=== PATIENT | male | born 1990 | race African-American/Black ===

== ENCOUNTER 2017-11-17 23:21 | Inpatient (IN) | payer OTHER ==
[~2017-11-17] VITALS: Ht 188 cm; Wt 99.0 kg
--- NOTE | 2017-11-18 00:38 | ED GI/GU/ABDOMINAL COMPLAINT ---
History of Present Illness General Chief Complaint: Abdominal Pain/Flank Pain Stated Complaint: "I HAVE ACUTE PANCREATITIS" PER PT Source: patient, family Exam Limitations: no limitations Vital Signs & Intake/Output Vital Signs & Intake/Output Vital Signs Date Time Temp Pulse Resp B/P B/P Pulse O2 O2 Flow FiO2 Mean Ox Delivery Rate 11/18 0105 Room Air 11/18 0030 98.8 61 18 153/100 95 Room Air Allergies Coded Allergies: hydromorphone (From DILAUDID) (Intermediate, HIVES 11/18/17) Triage Note: TRIAGE: PATIENT TO ER FROM HOME REPORTING "91/10 PAIN TO UPPER MID ABDOMEN SINCE NOON TODAY." DENIES N/V/D/ URINARY DIFFICULTIES. Triage Nurses Notes Reviewed? yes Onset: Gradual Duration: day(s): Timing: recent history Quality/Severity: burning, cramping, sharpness Location: epigastric Radiation: no radiation Activities at Onset: none Prior Abdominal Problems: similar symptoms Modifying Factors: Worsens With: palpation. Associated Symptoms: abdominal pain, nausea/vomiting HPI: 27 yo gentleman h/o pancreatitis since the age of 14, presents with mid epigastric discomfort, sharp, cramping, since noon 11/17, associated with nausea, consistent with his prior episodes of pancreatitis. He deneis alcohol ingestion or suspicious food intake. No fever, chills, shortness of breath, chest pain. He is otherwise well. Past History Travel History Traveled to [place] past 21 day No Medical History Any Pertinent Medical History? 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 No Review of Systems Review of Systems Constitutional: Reports: no symptoms. EENTM: Reports: no symptoms. Respiratory: Reports: no symptoms. Cardiovascular: Reports: no symptoms. GI: Reports: no symptoms. Genitourinary: Reports: no symptoms. Musculoskeletal: Reports: no symptoms. Skin: Reports: no symptoms. Neurological/Psychological: Reports: no symptoms. Hematologic/Endocrine: Reports: no symptoms. Immunologic/Allergic: Reports: no symptoms. All Other Systems: Reviewed and Negative Physical Exam Physical Exam General Appearance: well developed/nourished, mild distress, moderate distress Head: atraumatic, normal appearance Eyes: Bilateral: normal appearance. Ears, Nose, Throat, Mouth: hearing grossly normal, moist mucous membrane Neck: normal inspection, supple, full range of motion Respiratory: normal breath sounds, chest non-tender, no respiratory distress, quiet respiration Cardiovascular: regular rate/rhythm Gastrointestinal: normal bowel sounds, soft, mid epigastric tenderness to palpation, no rebound. no guarding. no RUQ tenderness. Back: normal inspection, normal range of motion Extremities: normal range of motion Neurologic/Psych: no motor/sensory deficits, awake, alert, oriented x 3 Skin: intact, normal color, warm/dry Core Measures ACS in differential dx? No Sepsis Present: No Sepsis Focused Exam Completed? No Progress Differential Diagnosis: pancreatitis vs other. Plan of Care: Orders Procedure Date/time Status Nothing by Mouth 11/18 B Active Pathway - chart 11/18 025 Active House Staff 11/18 0251 Active Patient Data 11/18 0251 Active Code Status 11/18 0251 Active Patient Data 11/18 0237 Active Saline Lock 11/18 0232 Active Misc Message 11/18 0232 Active ED Holding Orders 11/18 0232 Active Admit to inpatient 11/18 0232 Active Vital Signs 11/18 0232 Active Code Status 11/18 0232 Complete TRIGLYCERIDES 11/18 0119 Complete ETHANOL 11/18 0119 Complete AMYLASE 11/18 0119 Complete EKG 11/18 0038 Active Intake & Output 11/18 0025 Active LIPASE 11/18 0019 Complete LACTIC ACID 11/18 0019 Complete COMPREHENSIVE METABOLIC PANEL 11/18 0019 Complete CBC WITHOUT DIFFERENTIAL 11/18 0019 Complete US-LIMITED ABDOMEN 11/18 UNK Active VTE Mechanical Prophylaxis 11/18 UNK Active Vital Signs 11/18 UNK Active Activity/Ambulation 11/18 UNK Active Current Medications Sig/Berto Start time Last Medication Dose Stop Time Status Admin Heparin Sodium 5,000 UNIT Q8 11/18 0600 AC (Porcine) Morphine Sulfate 4 MG Q2-3 HRS NEEDED.. 11/18 0345 AC (MORPHINE SULFATE) Morphine Sulfate 8 MG ONCE ONE 11/18 0330 UNVr 11/18 (MORPHINE SULFATE) 11/18 0331 0341 Ketorolac 15 MG Q6P PRN 11/18 0300 AC Tromethamine 11/23 0259 (Toradol) Lactated Ringer's 1,000 ML Q6H 11/18 299 AC (Lactated Ringers) Ondansetron HCl 4 MG Q6P PRN 11/18 299 AC (Zofran) Pantoprazole Sodium 40 MG DAILY 11/18 299 AC (Protonix) Laboratory Tests 11/18/17 0319: Lactic Acid Cancelled 11/18/17 0119: Amylase Cancelled 11/18/17 0119: Anion Gap 7, Estimated GFR > 60, BUN/Creatinine Ratio 10.0, Glucose 110 H, Lactic Acid 1.0, Calcium 8.9, Total Bilirubin 1.1, AST 42, ALT 43, Alkaline Phosphatase 47, Total Protein 7.2, Albumin 4.4, Globulin 2.8, Albumin/Globulin Ratio 1.6, Triglycerides 77, Amylase 2439 H, Lipase > 51255 H, CBC w Diff NO MAN DIFF REQ, RBC 4.91, MCV 86.0, MCH 29.9, MCHC 34.7, RDW 12.5, MPV 7.6, Gran % 59.9, Lymphocytes % 24.0, Monocytes % 8.2, Eosinophils % 7.6 H, Basophils % 0.3 , Absolute Granulocytes 5.6, Absolute Lymphocytes 2.2, Absolute Monocytes 0.8 H , Absolute Eosinophils 0.7, Absolute Basophils 0, Serum Alcohol < 10.0 11/18/17 0036: Triglycerides Cancelled 11/18/17 0033: Serum Alcohol Cancelled Diagnostic Imaging: Viewed by Me: CT Scan. Discussed w/RAD: CT Scan. Radiology Impression: PATIENT: ISHAN DILLON PRESENT AGE: 27 PATIENT ACCOUNT NO: [id number] : 90 LOCATION: [facility] ORDERING PHYSICIAN: Jake Chandler MD SERVICE DATE: 11/18/17 EXAM TYPE: CAT - CT ABD & PELVIS W IV CONTRAST EXAMINATION: CT ABDOMEN AND PELVIS WITH CONTRAST CLINICAL INFORMATION: Pancreatitis COMPARISON: None TECHNIQUE: Multidetector volumetric imaging was performed of the abdomen and pelvis following IV administration of 95 mL of Optiray 320 intravenous contrast. Sagittal and coronal reformatted images were obtained on the technologist's workstation. DLP: 451.21 mGy-cm FINDINGS: LUNG BASES: The visualized lung bases are unremarkable. LIVER, GALLBLADDER, AND BILIARY TREE: The liver is normal in size, shape, and attenuation. No focal hepatic lesion or biliary ductal dilatation is present. The gallbladder is unremarkable with no evidence of radiopaque gallstones, gallbladder wall thickening, or obvious pericholecystic inflammatory changes. PANCREAS: Unremarkable. SPLEEN: Unremarkable. ADRENAL GLANDS: Unremarkable. KIDNEYS AND URETERS: The kidneys are normal in size, shape , and attenuation. There is a subcentimeter hypoattenuating lesion in the mid right kidney, statistically likely a small cyst. No hydronephrosis, hydroureter, or calculi seen. No perinephric stranding. BLADDER: Unremarkable. GASTROINTESTINAL TRACT: No specific evidence of bowel obstruction. No abnormal bowel wall thickening or pericolonic inflammation is identified. The appendix appears nondilated. No free fluid or free air is seen. ABDOMINAL WALL: No significant hernia is appreciated. LYMPH NODES: Normal. VASCULAR: Unremarkable. PELVIC VISCERA: Unremarkable. OSSEOUS STRUCTURES: Unremarkable. IMPRESSION: No acute findings identified in the abdomen/pelvis. 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 <Electronically signed in Other Vendor System> SIGNED BY: Hal Vann MD 11/18/17 0331 Initial ED EKG: sinus, no acute changes Departure Departure Disposition: STILL A PATIENT Condition: Stable Clinical Impression Primary Impression: Pancreatitis Referrals: Patient Has No Primary Care Dr (PCP/Family) Departure Forms: Customer Survey General Discharge Information Admission Note Spoke With: John Pham MD Documentation of Exam: Documentation of any treatments & extenuating circumstances including Concerns Regarding Discharge (functional status, medication knowledge or non-compliance, living conditions, etc.) that warrant an admission rather than observation: pt with pancreatitis, lipase >10,000.... benign ct scan is unusual given the degree of his discomfort and lab abnormalities... would have team review with radiologist in AM.
[2017-11-18 01:28] LABS: ABSOLUTE BASOPHIL COUNT 0 /CUMM (0.0-0.2); ABSOLUTE EOSINOPHIL COUNT 0.7 /CUMM (0.0-0.7); ABSOLUTE GRANULOCYTE CT 5.6 /CUMM (1.4-6.5); ABSOLUTE LYMPH COUNT 2.2 /CUMM (1.2-3.4); ABSOLUTE MONOCYTE COUNT 0.8 /CUMM (0.10-0.60); BASOPHIL % 0.3 % (0.0-2.0); EOSINOPHIL % 7.6 % (0-5); GRANULOCYTE % 59.9 % (42.2-75.2); HEMATOCRIT 42.2 % (42-52); MEAN CORPUSCULAR HGB 29.9 PG (27.0-31.0); MEAN CORPUSCULAR HGB CONC 34.7 G/DL (33.0-37.0); MEAN PLATELET VOLUME 7.6 FL (7.4-10.4); PLATELET COUNT 231 /CUMM (130-400); RBC DISTRIBUTION WIDTH 12.5 % (11.5-14.5); RED BLOOD CELL CT 4.91 /CUMM (4.70-6.10); WHITE BLOOD CELL COUNT 9.3 /CUMM (4.8-10.8)
--- NOTE | 2017-11-18 03:19 | History & Physical ---
Jeffry Mcarthur 11/18/17 0318: General Information and HPI MD Statement: I have seen and personally examined ISHAN DILLON and documented this H&P. The patient is a 27 year old M who presented with a patient stated chief complaint of abdominal pain. Source of Information: patient, family Exam Limitations: no limitations History of Present Illness: This is a 27-year-old male with past medical history significant for acute pancreatitis, abdominal trauma presented to the hospital with chief complaint of worsening abdominal pain since morning. Patient has history of episodes of recurrent acute pancreatitis episodes for 11 years.. According to the family, when he was 16-year-old he had abdomen trauma while he was playing football,then he was diagnosed with acute pancreatitis in [facility]. Since then he has been having recurrent episodes of acute pancreatitis every 2-3 years depending on his exertional activity. Patient reports 10 out of 10 abdomen pain, epigastric region, radiating to back, associated with nausea. Denies any vomiting, fever, chills. Denied any constipation or diarrhea. He denied any history of gallstones. No alcohol abuse. Denies hypertriglyceridemia. No family history of pancreatitis or pancreatic cancer. On review of systems he denied any fever, chills, chest pain, palpitations, short of breath, cough, vomiting, change in bladder or bowel habits, headache, neurologic deficits. He denies smoking, alcohol abuse, illicit drug abuse. 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 EENTM: Denies: blurred vision. Cardiovascular: Denies: chest pain, edema, orthopena, palpitations, peripheral edema. Respiratory: Denies: cough, hemoptysis, orthopnea, short of breath, sputum production, stridor. GI: Reports: abdominal pain, nausea. Denies: bloating, constipation, diarrhea, melena, bloody stool, changes in stool. Genitourinary: Denies: discharge, dysuria, frequency, hematuria, hesitation. Musculoskeletal: Denies: back pain, gout, joint pain. Skin: Denies: cysts, jaundice, lesions. Neurological/Psychological: Denies: depressed, dementia. Hematologic/Endocrine: Denies: bleeding. Exam & Diagnostic Data Last 24 Hrs of Vital Signs/I&O Vital Signs Date Time Temp Pulse Resp B/P B/P Pulse O2 O2 Flow FiO2 Mean Ox Delivery Rate 11/18 0105 Room Air 11/18 0030 98.8 61 18 153/100 95 Room Air Intake & Output 11/18 0800 11/18 0000 11/17 1600 Intake Total Output Total Balance Patient 93.894 kg Weight Weight Reported by Patient Measurement Method Physical Exam General Appearance Alert, Oriented X3, Cooperative, No Acute Distress Skin No Rashes, No Breakdown Skin Temp/Moisture Exam: Warm/Dry Sepsis Skin Exam (color): Normal for Ethnicity HEENT Atraumatic, PERRLA, EOMI, Mucous Membr. moist/pink Neck Supple, No JVD Lymphatic Axillary nl, Cervical nl Cardiovascular Regular Rate, Normal S1, Normal S2, No Murmurs Lungs Normal Air Movement Abdomen Normal Bowel Sounds, Soft, tenderness on palpation of epigastric area Extremities No Clubbing, No Cyanosis, No Edema, Normal Pulses, No Tenderness/ Swelling Vascular Normal Pulses, Pulses Symmetrical Last 24 Hrs of Labs/Keagan: Laboratory Tests 11/18/17 0319: Lactic Acid Cancelled 11/18/17 0119: Amylase Cancelled 11/18/17 0119: Anion Gap 7, Estimated GFR > 60, BUN/Creatinine Ratio 10.0, Glucose 110 H, Lactic Acid 1.0, Calcium 8.9, Total Bilirubin 1.1, AST 42, ALT 43, Alkaline Phosphatase 47, Total Protein 7.2, Albumin 4.4, Globulin 2.8, Albumin/Globulin Ratio 1.6, Triglycerides 77, Amylase 2439 H, Lipase > 29504 H, CBC w Diff NO MAN DIFF REQ, RBC 4.91, MCV 86.0, MCH 29.9, MCHC 34.7, RDW 12.5, MPV 7.6, Gran % 59.9, Lymphocytes % 24.0, Monocytes % 8.2, Eosinophils % 7.6 H, Basophils % 0.3 , Absolute Granulocytes 5.6, Absolute Lymphocytes 2.2, Absolute Monocytes 0.8 H , Absolute Eosinophils 0.7, Absolute Basophils 0, Serum Alcohol < 10.0 11/18/17 0036: Triglycerides Cancelled 11/18/17 0033: Serum Alcohol Cancelled Assessment/Plan Assessment: This is a 27-year-old male with past medical history significant for acute pancreatitis, abdominal trauma presented to the hospital with chief complaint of worsening abdominal pain since morning. Vitals afebrile, heart rate 60, respiratory rate 18, blood pressure 153/100, saturating at 95% Labs WBC 9.3, hemoglobin 14, hematocrit 42, platelets 231 Sodium 139, potassium 3.6, BUN 9 and creatinine 0.9, glucose 110 LFTs in normal limits Amylase 2439 Lipase greater than 10,000 EKG sinus arrhythmia, rate 77, no acute ST-T wave changes Patient received sodium chloride 2, Zofran, Pepcid, morphine in the emergency room CAT scan abdomen No acute findings identified in the abdomen/pelvis. 1. Acute pancreatitis Patient presented with worsening abdominal pain, 10 out of 10, associated with the nausea. Patient has history of episodes of recurrent acute pancreatitis episodes for last 11 years.. According to the family, he has been having recurrent episodes of acute pancreatitis every 2-3 years depending on his exertional activity since he was 16-year-old(Diagnosed with acute pancreatitis after abdominal trauma). No alcohol abuse. Denies H/O hypertriglyceridemia. No family history of pancreatitis or pancreatic cancer. Acute pancreatitis most likely secondary to exertional activity prior to that admission. CAT scan abdomen-No acute findings identified in the abdomen/pelvis. * Admit to GEN med * monitor vitals every shift * Maintain oxygen saturations greater than 92 * Bowel rest-n.p.o. * IV Ringer's lactate at 150 mL/h * IV Zofran as needed for nausea * IV pain medications-Toradol and morphine were ordered. Of note he is allergic to Dilaudid * Omeprazole 40 mg daily * Right upper quadrant ultrasound in the a.m. * Lipid panel-triglycerides in normal limits * Please trend amylase and lipase Full code N.p.o. DVT prophylaxis subcu heparin Pain pathway ordered As Ranked By This Provider Problem List: 1. Pancreatitis Core Measures/Misc (12/09) Acute Coronary Syndrome ACS Diagnosis: No Congestive Heart Failure Congestive Heart Failure Diagnosis No Cerebrovascular Accident CVA/TIA Diagnosis: No VTE (View Protocol) VTE Risk Factors No risk factors No Mechanical VTE Prophylaxis d/t Medical Contraindication No VTE Pharm Prophylaxis d/t Medical Contraindication Sepsis (View protocol) Sepsis Present: No If YES complete Sepsis Event Note If YES complete Sepsis Event Note John Pham MD 11/18/17 0607: Core Measures/Misc (12/09) Sepsis (View protocol) If YES complete Sepsis Event Note If YES complete Sepsis Event Note Attending MD Review Statement Attending Statement Attending MD Statement: examined this patient, discuss w/resident/PA/FACTORY MAINTENANCE TECHNICIAN, agreed w/resident/PA/FACTORY MAINTENANCE TECHNICIAN Attending Assessment/Plan: 27 year-old gentleman new to [facility] long standing history of recurrent pancreatitis following sports related injury presents with abdominal pain typical of his infrequent flares. Vitals are stable, no fevers, no lactic acidosis, but significantly uncomfortable in the ER. Unable to obtain relief with significant amounts of opiates in the ED. No nausea and vomiting. No alcohol. LFT's are normal as is the anion gap and triglycerides. In ER given 2 liters of IVF's, Zofran, morphine 12mg IV total in divided doses. Minimal relief thus far. CT scan Admit to inpatient for management of acute pancreatitis. Plan aggressive IVF's at 200mL per hour, IV morphine (allergy with hives to dilaudid he believes), Zofran IV PRN, and trend down the pancreatic enzymes. If we can't get reasonable control of his pain will premedicate with Benadryl and proceed with Dilaudid. Orlando Pham MD ++
--- NOTE | 2017-11-18 03:31 | CT SCAN REPORT ---
EXAMINATION: CT ABDOMEN AND PELVIS WITH CONTRAST CLINICAL INFORMATION: Pancreatitis COMPARISON: None TECHNIQUE: Multidetector volumetric imaging was performed of the abdomen and pelvis following IV administration of 95 mL of Optiray 320 intravenous contrast. Sagittal and coronal reformatted images were obtained on the technologist's workstation. DLP: 451.21 mGy-cm FINDINGS: LUNG BASES: The visualized lung bases are unremarkable. LIVER, GALLBLADDER, AND BILIARY TREE: The liver is normal in size, shape, and attenuation. No focal hepatic lesion or biliary ductal dilatation is present. The gallbladder is unremarkable with no evidence of radiopaque gallstones, gallbladder wall thickening, or obvious pericholecystic inflammatory changes. PANCREAS: Unremarkable. SPLEEN: Unremarkable. ADRENAL GLANDS: Unremarkable. KIDNEYS AND URETERS: The kidneys are normal in size, shape, and attenuation. There is a subcentimeter hypoattenuating lesion in the mid right kidney, statistically likely a small cyst. No hydronephrosis, hydroureter, or calculi seen. No perinephric stranding. BLADDER: Unremarkable. GASTROINTESTINAL TRACT: No specific evidence of bowel obstruction. No abnormal bowel wall thickening or pericolonic inflammation is identified. The appendix appears nondilated. No free fluid or free air is seen. ABDOMINAL WALL: No significant hernia is appreciated. LYMPH NODES: Normal. VASCULAR: Unremarkable. PELVIC VISCERA: Unremarkable. OSSEOUS STRUCTURES: Unremarkable. IMPRESSION: No acute findings identified in the abdomen/pelvis.
[2017-11-18 06:27] VITALS: BP 138/94
--- NOTE | 2017-11-18 07:51 | PN- Housestaff ---
Subjective Follow-up For: Acute Pancreatitis Subjective: Afebrile overnight. Patient is seen and examined in bed this morning in moderate distress. Patient states he has been experiencing severe abdominal pain since last night rated as 10 out of 10 this morning. Patient does not believe the pain medications are helping him so far. Patient denies any radiation of his pain and states most of his pain is located in the epigastric area. Patient otherwise denies any diarrhea, constipation, chest pain, n/v, and dizziness. Review of Systems Constitutional: Reports: see HPI. Objective Last 24 Hrs of Vital Signs/I&O Vital Signs Date Time Temp Pulse Resp B/P B/P Pulse O2 O2 Flow FiO2 Mean Ox Delivery Rate 11/18 0627 97.5 74 20 138/94 99 11/18 0105 Room Air 11/18 0030 98.8 61 18 153/100 95 Room Air Intake & Output 11/18 1600 11/18 0800 11/18 0000 Intake Total 450 Output Total Balance 450 Intake, IV 450 Patient 218 lb Weight Weight Bed scale Measurement Method Physical Exam General Appearance: Alert, Oriented X3, Cooperative, Moderate Distress
--- NOTE | 2017-11-18 10:29 | ULTRASOUND REPORT ---
US ABDOMEN LIMITED CLINICAL INFORMATION: Assess for gallstones. Pancreatitis.. COMPARISON: Abdominal CT performed earlier the same day. TECHNIQUE: Real-time imaging of the right upper quadrant abdominal viscera. FINDINGS: PANCREAS: Majority of the pancreas is obscured by bowel gas and not well assessed. LIVER: Normal. The liver demonstrates normal size, contour and echogenicity. No focal lesion or intrahepatic biliary duct dilatation. GALLBLADDER: Normal. The gallbladder is physiologically distended without evidence of stones, sludge, polyps, wall thickening or pericholecystic fluid. COMMON BILE DUCT: Normal in caliber measuring 0.6 cm in diameter. RIGHT KIDNEY: Normal. No hydronephrosis. No renal calculi or focal parenchymal lesions. The kidney measures 11.7 cm in maximum dimension. FREE FLUID: None. IMPRESSION: Unremarkable right upper quadrant ultrasound. Majority of the pancreas is obscured by bowel gas and not well assessed.
[2017-11-18 14:00] VITALS: BP 133/79
--- NOTE | 2017-11-18 19:19 | Cons- Gastroenterology ---
General Information and HPI Consulting Request Date of Consult: 11/18/17 Requested By: Noe Fitzpatrick MD Reason for Consult: Acute pancreatitis Allergies/Medications Allergies: Coded Allergies: hydromorphone (From DILAUDID) (Intermediate, HIVES 11/18/17) Current Medications: Current Medications Sig/Berto Start time Last Medication Dose Route Stop Time Status Admin Docusate Sodium 100 MG BID PRN 11/18 1200 AC PO Famotidine 0 .STK-MED ONE 11/18 0055 DC IV Famotidine 20 MG ONCE ONE 11/18 0045 DC 11/18 IV 11/18 0046 0104 Gabapentin 300 MG Q8 11/18 1400 AC 11/18 PO 1556 Heparin Sodium 5,000 UNIT Q8 11/18 0600 AC 11/18 (Porcine) SC 1400 Hydromorphone HCl 1 MG Q6P PRN 11/18 0300 DC IV Ketorolac 15 MG Q6P PRN 11/18 0300 DC 11/18 Tromethamine IV 11/23 0259 0806 Lactated Ringer's 1,000 ML Q5H 11/18 0615 AC 11/18 IV 1559 Lactated Ringer's 1,000 ML Q6H 11/18 0300 DC 11/18 IV 0424 Morphine Sulfate 6 MG Q2-3 HRS NEEDED.. 11/18 1200 AC 11/18 IV 1321 Morphine Sulfate 4 MG Q2-3 HRS NEEDED.. 11/18 0345 DC 11/18 IV 0754 Morphine Sulfate 0 .STK-MED ONE 11/18 0336 DC .ROUTE Morphine Sulfate 8 MG ONCE ONE 11/18 0330 DC 11/18 IV 11/18 0331 0341 Morphine Sulfate 0 .STK-MED ONE 11/18 0235 DC .ROUTE Morphine Sulfate 6 MG ONCE ONE 11/18 0230 DC 11/18 IV 11/18 0231 0236 Morphine Sulfate 6 MG ONCE ONE 11/18 0045 DC 11/18 IV 11/18 0046 0104 Ondansetron HCl 4 MG Q6P PRN 11/18 0300 AC IV Ondansetron HCl 0 .STK-MED ONE 11/18 0055 DC .ROUTE Ondansetron HCl 4 MG ONCE ONE 11/18 0045 DC 11/18 IV 11/18 0046 0104 Pantoprazole Sodium 40 MG DAILY 11/18 0300 AC IV Patient Medication 1 ED ONE ONE 11/18 0900 DC 11/18 Teaching ED 11/18 0901 1130 Senna 187 MG AT BEDTIME PRN 11/18 1200 AC PO Sodium Chloride 1,000 ML BOLUS ONE 11/18 0045 DC 11/18 IV 11/18 0144 0153 Sodium Chloride 1,000 ML BOLUS ONE 11/18 0045 DC 11/18 IV 11/18 0144 0104 Past History Travel History Traveled to [place] past 21 day No Medical History Blood Transfusion Hx: No Neurological: NONE EENT: NONE Cardiovascular: NONE Respiratory: NONE Gastrointestinal: pancreatitis Hepatic: NONE Renal: NONE Musculoskeletal: NONE Psychiatric: NONE Endocrine: NONE Blood Disorders: NONE Cancer(s): NONE DAMAGE ADJUSTER/Reproductive: NONE Surgical History Surgical History: 1 Psychosocial History Where Do You Live? Home Services at Home: None Smoking Status: Never Smoked ETOH Use: denies use Illicit Drug Use: denies illicit drug use Exam & Diagnostic Data Vital Signs and I&O Vital Signs Date Time Temp Pulse Resp B/P B/P Pulse O2 O2 Flow FiO2 Mean Ox Delivery Rate 11/18 1400 98.7 63 20 133/79 95 Room Air 11/18 06 97.5 74 20 138/94 99 11/18 0105 Room Air 11/18 0030 98.8 61 18 153/100 95 Room Air Intake & Output 11/18 1600 11/18 0400 11/17 1600 11/17 0400 11/16 1600 11/16 0400 Intake Total 2090 Output Total Balance 2090 Intake, IV 1850 Intake, Oral 240 Patient 218 lb 207 lb Weight Weight Bed scale Reported by Patient Measurement Method Results Pertinent Lab Results: Laboratory Tests 11/18 11/18 11/18 1800 0319 0119 Chemistry Lactic Acid Cancelled Amylase Cancelled Toxicology Urine Opiates Screen (>2000 NG/ML) Pending Methadone Screen (>300 NG/ML) Pending Barbiturate Screen (>200 NG/ML) Pending Ur Phencyclidine Scrn (>25 NG/ML) Pending Amphetamines Screen (>1000 NG/ML) Pending U Benzodiazepines Scrn (>200 NG/ML) Pending Urine Cocaine Screen (>300 NG/ML) Pending Urine Cannabis Screen (>50 NG/ML) Pending 11/18 11/18 11/18 0119 0036 0033 Chemistry Sodium (137 - 145 mmol/L) 139 Potassium (3.5 - 5.1 mmol/L) 3.6 Chloride (98 - 107 mmol/L) 103 Carbon Dioxide (22 - 30 mmol/L) 29 Anion Gap (5 - 16) 7 BUN (9 - 20 mg/dL) 9 Creatinine (0.7 - 1.2 mg/dL) 0.9 Estimated GFR (>60 ml/min) > 60 BUN/Creatinine Ratio (7 - 25 %) 10.0 Glucose (65 - 99 mg/dL) 110 H Lactic Acid (0.7 - 2.1 mmol/L) 1.0 Calcium (8.4 - 10.2 mg/dL) 8.9 Total Bilirubin (0.2 - 1.3 mg/dL) 1.1 AST (17 - 59 U/L) 42 ALT (21 - 72 U/L) 43 Alkaline Phosphatase (< 127 U/L) 47 Total Protein (6.3 - 8.2 g/dL) 7.2 Albumin (3.5 - 5.0 g/dL) 4.4 Globulin (1.9 - 4.2 gm/dL) 2.8 Albumin/Globulin Ratio (1.1 - 2.2 %) 1.6 Triglycerides (<150 mg/dL) 77 Cancelled Amylase (30 - 110 U/L) 2439 H Lipase (23 - 300 U/L) > 53747 H Hematology CBC w Diff NO MAN DIFF REQ WBC (4.8 - 10.8 /CUMM) 9.3 RBC (4.70 - 6.10 /CUMM) 4.91 Hgb (14.0 - 18.0 G/DL) 14.6 Hct (42 - 52 %) 42.2 MCV (80.0 - 94.0 FL) 86.0 MCH (27.0 - 31.0 PG) 29.9 MCHC (33.0 - 37.0 G/DL) 34.7 RDW (11.5 - 14.5 %) 12.5 Plt Count (130 - 400 /CUMM) 231 MPV (7.4 - 10.4 FL) 7.6 Gran % (42.2 - 75.2 %) 59.9 Lymphocytes % (20.5 - 51.1 %) 24.0 Monocytes % (1.7 - 9.3 %) 8.2 Eosinophils % (0 - 5 %) 7.6 H Basophils % (0.0 - 2.0 %) 0.3 Absolute Granulocytes (1.4 - 6.5 /CUMM) 5.6 Absolute Lymphocytes (1.2 - 3.4 /CUMM) 2.2 Absolute Monocytes (0.10 - 0.60 /CUMM) 0.8 H Absolute Eosinophils (0.0 - 0.7 /CUMM) 0.7 Absolute Basophils (0.0 - 0.2 /CUMM) 0 Toxicology Serum Alcohol (<10 MG/DL) < 10.0 Cancelled Imaging/Other Studies: CT scan unremarkable, including no evidence of pancreatitis Ultrasound unremarkable, including no gallstones Assessment/Plan Assessment/Recommendations: Recurrent acute pancreatitis, idiopathic. 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 Manifested as pain and with markedly elevated pancreatic enzymes, but without imaging characteristics of pancreatic inflammation. Recommendations * Standard treatment of pancreatitis, with analgesics, antiemetics, IV fluids. * Clear liquids as tolerated * Consider IV acetaminophen given possible opioid allergy * Eventual evaluation at pancreatitis center, to include evaluation of ductal anatomy (the patient lives in [place], [place], and is visiting relatives now). Consult Acknowledgment - Thank you for your consult request.
[2017-11-18 20:50] VITALS: BP 137/80
--- NOTE | 2017-11-18 22:14 | PN- Att Addend ---
Attending Addendum Attending Brief Note S: The patient continues with severe pain and dose of morphine increased. Able to take liquids by mouth. O: VS: Vital Signs Date Time Temp Pulse Resp B/P B/P Pulse O2 O2 Flow FiO2 Mean Ox Delivery Rate 11/18 2049 98.4 86 16 137/80 97 Room Air 11/18 1400 98.7 63 20 133/79 95 Room Air 11/18 0627 97.5 74 20 138/94 99 11/18 0105 Room Air 11/18 0030 98.8 61 18 153/100 95 Room Air Intake & Output 11/18 1600 11/18 0800 11/18 0000 Intake Total 1640 450 Output Total Balance 1640 450 Intake, IV 1400 450 Intake, Oral 240 Patient 218 lb Weight Weight Bed scale Measurement Method Current Medications Sig/Berto Start time Last Medication Dose Route Stop Time Status Admin Docusate Sodium 100 MG BID PRN 11/18 1200 AC PO Famotidine 0 .STK-MED ONE 11/18 0055 DC IV Famotidine 20 MG ONCE ONE 11/18 0045 DC 11/18 IV 11/18 0046 0104 Gabapentin 300 MG Q8 11/18 1400 AC 11/18 PO 1940 Heparin Sodium 5,000 UNIT Q8 11/18 0600 AC 11/18 (Porcine) SC 1940 Hydromorphone HCl 1 MG Q6P PRN 11/18 0300 DC IV Ketorolac 15 MG Q6P PRN 11/18 0300 DC 11/18 Tromethamine IV 11/23 0259 0806 Lactated Ringer's 1,000 ML Q5H 11/18 0615 AC 11/18 IV 1559 Lactated Ringer's 1,000 ML Q6H 11/18 0300 DC 11/18 IV 0424 Morphine Sulfate 6 MG Q2-3 HRS NEEDED.. 11/18 1200 AC 11/18 IV 1947 Morphine Sulfate 4 MG Q2-3 HRS NEEDED.. 11/18 0345 DC 11/18 IV 0754 Morphine Sulfate 0 .STK-MED ONE 11/18 0336 DC .ROUTE Morphine Sulfate 8 MG ONCE ONE 11/18 0330 DC 11/18 IV 11/18 0331 0341 Morphine Sulfate 0 .STK-MED ONE 11/18 0235 DC .ROUTE Morphine Sulfate 6 MG ONCE ONE 11/18 0230 DC 11/18 IV 11/18 0231 0236 Morphine Sulfate 6 MG ONCE ONE 11/18 44 DC 11/18 IV 11/186 0104 Ondansetron HCl 4 MG Q6P PRN 11/18 0300 AC IV Ondansetron HCl 0 .STK-MED ONE 11/18 0055 DC .ROUTE Ondansetron HCl 4 MG ONCE ONE 11/18 44 DC 11/18 IV 11/186 0104 Pantoprazole Sodium 40 MG DAILY 11/18 0300 AC IV Patient Medication 1 ED ONE ONE 11/18 0900 DC 11/18 Teaching ED 11/18 0901 1130 Senna 187 MG AT BEDTIME PRN 11/18 1200 AC PO Sodium Chloride 1,000 ML BOLUS ONE 11/18 44 DC 11/18 IV 11/18 0144 0153 Sodium Chloride 1,000 ML BOLUS ONE 11/18 44 DC 11/18 IV 11/19 143 0104 Chest: clear Cor: RRR nl S1, S2 w/o murm Abd: BS+, soft, + epigastric tenderness w/o rebound Ext: no edema Labs: Laboratory Tests 11/18/17 1800: Urine Opiates Screen > 4000.00 H, Methadone Screen < 40, Barbiturate Screen < 60, Ur Phencyclidine Scrn < 6.00, Amphetamines Screen < 100, U Benzodiazepines Scrn < 85, Urine Cocaine Screen < 50, Urine Cannabis Screen > 80.00 H 11/18/17 0319: Lactic Acid Cancelled 11/18/17 0119: Amylase Cancelled 11/18/17 0119: Anion Gap 7, Estimated GFR > 60, BUN/Creatinine Ratio 10.0, Glucose 110 H, Lactic Acid 1.0, Calcium 8.9, Total Bilirubin 1.1, AST 42, ALT 43, Alkaline Phosphatase 47, Total Protein 7.2, Albumin 4.4, Globulin 2.8, Albumin/Globulin Ratio 1.6, Triglycerides 77, Amylase 2439 H, Lipase > 10226 H, CBC w Diff NO MAN DIFF REQ, RBC 4.91, MCV 86.0, MCH 29.9, MCHC 34.7, RDW 12.5, MPV 7.6, Gran % 59.9, Lymphocytes % 24.0, Monocytes % 8.2, Eosinophils % 7.6 H, Basophils % 0.3 , Absolute Granulocytes 5.6, Absolute Lymphocytes 2.2, Absolute Monocytes 0.8 H , Absolute Eosinophils 0.7, Absolute Basophils 0, Serum Alcohol < 10.0 11/18/17 0036: Triglycerides Cancelled 11/18/17 0033: Serum Alcohol Cancelled Impression/Plan: #Abdominal Pain/Pancreatitis- with h/o abdominal trauma in past. No imaging evidence of pancreatitis, however lipase > 10,000. GI input appreciated. Plan: Continue IV Ringer's Morphine for analgesia. Add Gabapentin 300 mg tid. Clear Liquid diet. #Gastritis- patient w/o further vomiting. Plan: Continue IV hydration. Zofran/Famotidine.
--- NOTE | 2017-11-19 07:03 | PN- Housestaff ---
Adan Bryant 11/19/17 0703: Subjective Follow-up For: Pancreatitis Subjective: Patient seen and examined at bedside this morning. States his adbominal pain is 3 points better today as controlled by IV morphine and gabapentin. Patient on IV fluids ringers. Denies any vomiting but has occiasional nausea when getting out of bed that is controlled by zofran. Will talk to pharmacy about oral form of morphine for transition in pain control. Review of Systems Constitutional: Denies: see HPI. Objective Last 24 Hrs of Vital Signs/I&O Vital Signs Date Time Temp Pulse Resp B/P B/P Pulse O2 O2 Flow FiO2 Mean Ox Delivery Rate 11/19 726 98.1 96 18 133/80 98 Room Air 11/18 205 98.4 86 16 137/80 97 Room Air 11/18 1400 98.7 63 20 133/79 95 Room Air Intake & Output 11/19 1600 11/19 0800 11/19 0000 Intake Total 1600 400 Output Total Balance 1600 400 Intake, IV 1600 400 Intake, Oral 0 0 Physical Exam General Appearance: Alert, Oriented X3, Cooperative, No Acute Distress Skin: No Rashes, No Breakdown, No Significant Lesion HEENT: PERRLA, EOMI, Mucous Membr. moist/pink Cardiovascular: Regular Rate, Normal S1, Normal S2 Lungs: Clear to Auscultation, Normal Air Movement Abdomen: Pain on palpation superficial/deep; normal bowel sounds; non-distended Neurological: Normal Gait, Normal Speech, Strength at 5/5 X4 Ext, Normal Tone Extremities: No Clubbing, No Cyanosis, No Edema Vascular: Normal Pulses, Pulses Symmetrical Current Medications: Current Medications Sig/Berto Start time Last Medication Dose Route Stop Time Status Admin Docusate Sodium 100 MG BID PRN 11/18 1200 AC PO Gabapentin 300 MG Q8 11/18 1400 AC 11/19 PO 0552 Heparin Sodium 5,000 UNIT Q8 11/18 0600 AC 11/19 (Porcine) SC 0551 Lactated Ringer's 1,000 ML Q5H 11/18 0615 AC 11/19 IV 1035 Morphine Sulfate 6 MG Q2-3 HRS NEEDED.. 11/18 1200 AC 11/19 IV 1103 Morphine Sulfate 4 MG Q2-3 HRS NEEDED.. 11/18 0345 DC 11/18 IV 0754 Ondansetron HCl 4 MG Q6P PRN 11/18 0300 AC IV Pantoprazole Sodium 40 MG DAILY 11/18 0300 AC 11/19 IV 0935 Senna 187 MG AT BEDTIME PRN 11/18 1200 AC PO Tramadol HCl 50 MG ONCE ONE 11/18 2345 DC 11/18 PO 11/18 2346 2343 Tramadol HCl 0 .STK-MED ONE 11/18 2344 DC PO Last 24 Hrs of Lab/Keagan Results Last 24 Hrs of Labs/Mics: Laboratory Tests 11/19/17 0641: Amylase 648 H, Lipase 2383 H 11/18/17 1800: Urine Opiates Screen > 4000.00 H, Methadone Screen < 40, Barbiturate Screen < 60, Ur Phencyclidine Scrn < 6.00, Amphetamines Screen < 100, U Benzodiazepines Scrn < 85, Urine Cocaine Screen < 50, Urine Cannabis Screen > 80.00 H Assessment/Plan Assessment: Patient is a 27 year old male with PMH of multiple bouts of acute pancreatitis secondary to possible abdominal trauma in the past who presented to ED with cheif complain of abdominal pain. Manifested as pain and with markedly elevated pancreatic enzymes, but without imaging characteristics of pancreatic inflammation. CT scan unremarkable, including no evidence of pancreatitis Ultrasound unremarkable, including no gallstones Utox: Cannabis Abdominal Pain/Pancreatitis -History of abdominal pain and pancreatitis in the past; lipase >10,000 on admission; Etiology is likely related to a pancreatic ductal abnormality following trauma many years ago. Lipase decreased to 2383 and amylase at 648 from 2439. * Continue IV Ringers hydration * Morphine MSIR 15mg q6 PRN; discontinued IV morphine for now; consider restarting for breatkthrough pain if needed * Gabapentin 300mg TID * Clear liquid diet * GI Dr. Lua seen patient; Eventual evaluation at pancreatitis center, to include evaluation of ductal anatomy (the patient lives in [place], [place], and is visiting relatives now). Gastritis -1X episode of clear vomit overnight reported * Continue IV hydration * Zofran/Famotidine Problem List: 1. Pancreatitis Pain Ratin Pain Location: Epigastric Pain Goal: Pain 7 or less Pain Plan: as per pain pathway Tomorrow's Labs & Rationales: cbc Noe Osborn MD 11/19/172124: Attending MD Review Statement Attending Statement Attending MD Statement: examined this patient, discuss w/resident/PA/FRAME ALIGNER, agreed w/resident/PA/FRAME ALIGNER, discussed with family, reviewed EMR data (avail), discussed with nursing, discussed with case mgmt, amended to note Attending Assessment/Plan: The patient was seen and discussed with house staff. Appreciate GI follow-up. Pain improved today and lipase decreased to 2383. Will continue to follow symptoms. Suggest more workup as OP when discharged (in [place]).
[2017-11-19 07:27] VITALS: BP 133/80
[2017-11-19 14:31] VITALS: BP 140/88
--- NOTE | 2017-11-19 17:29 | PN- Gastroenterology ---
Assessment/Plan GI Assessment/Recommendations: Recurrent acute pancreatitis, idiopathic. 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 Manifested as pain and with markedly elevated pancreatic enzymes, but without imaging characteristics of pancreatic inflammation. Marked improvement today. Recommendations * Agree with transition to oral analgesics. * Advance to low-fat diet * Eventual evaluation at pancreatitis center, to include evaluation of ductal anatomy (the patient lives in [place], [place], and is visiting relatives now). Subjective Subjective: Pain markedly improved. No nausea or vomiting. No fever. Tolerating full liquid diet. Objective Vital Signs and I&Os Vital Signs Date Time Temp Pulse Resp B/P B/P Pulse O2 O2 Flow FiO2 Mean Ox Delivery Rate 11/19 1431 97.8 86 18 140/88 97 Room Air 11/19 07 98.1 96 18 133/80 98 Room Air 11/18 2049 98.4 86 16 137/80 97 Room Air Intake & Output 11/19 1600 11/19 0400 11/18 1600 11/18 0400 11/17 1600 11/17 0400 Intake Total 6238 164 5903 Output Total Balance 9262 150 1912 Intake, IV 3726 055 0162 Intake, Oral 0 0 240 Patient 218 lb 207 lb Weight Weight Bed scale Reported by Patient Measurement Method Physical Exam: Alert and oriented. Sclera anicteric. No edema. Abdomen soft, nondistended, mild epigastric tenderness. Current Medications: Current Medications Sig/Berto Start time Last Medication Dose Route Stop Time Status Admin Docusate Sodium 100 MG BID PRN 11/18 1200 AC PO Gabapentin 300 MG Q8 11/18 1400 AC 11/19 PO 1456 Heparin Sodium 5,000 UNIT Q8 11/18 0600 AC 11/19 (Porcine) SC 1456 Lactated Ringer's 1,000 ML Q5H 11/18 0615 AC 11/19 IV 1456 Morphine Sulfate 15 MG Q6PRN PRN 11/19 1630 AC PO Morphine Sulfate 15 MG Q6PRN PRN 11/19 1430 DC PO Morphine Sulfate 6 MG Q2-3 HRS NEEDED.. 11/18 1200 DC 11/19 IV 1103 Ondansetron HCl 4 MG Q6P PRN 11/18 0300 AC IV Pantoprazole Sodium 40 MG DAILY 11/18 0300 AC 11/19 IV 0935 Senna 187 MG AT BEDTIME PRN 11/18 1200 AC PO Tramadol HCl 50 MG ONCE ONE 11/18 2345 DC 11/18 PO 11/18 2346 2343 Tramadol HCl 0 .STK-MED ONE 11/18 2344 DC PO Results Pertinent Lab Results: Laboratory Tests 11/19 11/18 11/18 11/18 0641 1800 0319 0119 Chemistry Lactic Acid Cancelled Amylase (30 - 110 U/L) 648 H Cancelled Lipase (23 - 300 U/L) 2383 H Toxicology Urine Opiates Screen (>2000 NG/ML) > 4000.00 H Methadone Screen (>300 NG/ML) < 40 Barbiturate Screen (>200 NG/ML) < 60 Ur Phencyclidine Scrn (>25 NG/ML) < 6.00 Amphetamines Screen (>1000 NG/ML) < 100 U Benzodiazepines Scrn (>200 NG/ML) < 85 Urine Cocaine Screen (>300 NG/ML) < 50 Urine Cannabis Screen (>50 NG/ML) > 80.00 H 11/18 11/18 11/18 0119 0036 0033 Chemistry Sodium (137 - 145 mmol/L) 139 Potassium (3.5 - 5.1 mmol/L) 3.6 Chloride (98 - 107 mmol/L) 103 Carbon Dioxide (22 - 30 mmol/L) 29 Anion Gap (5 - 16) 7 BUN (9 - 20 mg/dL) 9 Creatinine (0.7 - 1.2 mg/dL) 0.9 Estimated GFR (>60 ml/min) > 60 BUN/Creatinine Ratio (7 - 25 %) 10.0 Glucose (65 - 99 mg/dL) 110 H Lactic Acid (0.7 - 2.1 mmol/L) 1.0 Calcium (8.4 - 10.2 mg/dL) 8.9 Total Bilirubin (0.2 - 1.3 mg/dL) 1.1 AST (17 - 59 U/L) 42 ALT (21 - 72 U/L) 43 Alkaline Phosphatase (< 127 U/L) 47 Total Protein (6.3 - 8.2 g/dL) 7.2 Albumin (3.5 - 5.0 g/dL) 4.4 Globulin (1.9 - 4.2 gm/dL) 2.8 Albumin/Globulin Ratio (1.1 - 2.2 %) 1.6 Triglycerides (<150 mg/dL) 77 Cancelled Amylase (30 - 110 U/L) 2439 H Lipase (23 - 300 U/L) > 79819 H Hematology CBC w Diff NO MAN DIFF REQ WBC (4.8 - 10.8 /CUMM) 9.3 RBC (4.70 - 6.10 /CUMM) 4.91 Hgb (14.0 - 18.0 G/DL) 14.6 Hct (42 - 52 %) 42.2 MCV (80.0 - 94.0 FL) 86.0 MCH (27.0 - 31.0 PG) 29.9 MCHC (33.0 - 37.0 G/DL) 34.7 RDW (11.5 - 14.5 %) 12.5 Plt Count (130 - 400 /CUMM) 231 MPV (7.4 - 10.4 FL) 7.6 Gran % (42.2 - 75.2 %) 59.9 Lymphocytes % (20.5 - 51.1 %) 24.0 Monocytes % (1.7 - 9.3 %) 8.2 Eosinophils % (0 - 5 %) 7.6 H Basophils % (0.0 - 2.0 %) 0.3 Absolute Granulocytes (1.4 - 6.5 /CUMM) 5.6 Absolute Lymphocytes (1.2 - 3.4 /CUMM) 2.2 Absolute Monocytes (0.10 - 0.60 /CUMM) 0.8 H Absolute Eosinophils (0.0 - 0.7 /CUMM) 0.7 Absolute Basophils (0.0 - 0.2 /CUMM) 0 Toxicology Serum Alcohol (<10 MG/DL) < 10.0 Cancelled
[2017-11-19 22:38] VITALS: BP 136/85
[2017-11-20 06:57] VITALS: BP 155/96
--- NOTE | 2017-11-20 06:57 | PN- Housestaff ---
See Addendum Subjective Follow-up For: Pancreatitis Subjective: Patient seen and examined at bedside. Claimed he did not tolerate liquids overnight including apple juice, cranberry juice, honduran ice as it caused him severe pain which was releived by oral MSIR. GI has seen patient and recommended low fat diet which will be held for now. IV ringers running and decreased to 125 /hr given improvement in patients lipase from admission. Denies any diarrhea, nausea, vomiting. Review of Systems Constitutional: Denies: see HPI. Objective Last 24 Hrs of Vital Signs/I&O Vital Signs Date Time Temp Pulse Resp B/P B/P Pulse O2 O2 Flow FiO2 Mean Ox Delivery Rate 11/20 1449 98.8 96 20 148/87 98 Room Air 11/20 0657 99.2 95 20 155/96 95 11/19 2238 99.1 106 20 136/85 98 Room Air Intake & Output 11/20 1600 11/20 0800 11/20 0000 Intake Total 1300 1700 940 Output Total Balance 1300 1700 940 Intake, IV 800 1600 800 Intake, Oral 500 100 140 Number 0 Bowel Movements Patient 218 lb Weight Physical Exam General Appearance: Alert, Oriented X3, Cooperative Skin: No Rashes, No Breakdown, No Significant Lesion HEENT: PERRLA, EOMI Cardiovascular: Regular Rate, Normal S1, Normal S2, No Murmurs, Gallops, Rubs Lungs: Clear to Auscultation, Normal Air Movement Abdomen: Epigastric pain; tender to palpation; normal bowel sounds Extremities: No Clubbing, No Cyanosis, No Edema Current Medications: Current Medications Sig/Berto Start time Last Medication Dose Route Stop Time Status Admin Docusate Sodium 100 MG BID PRN 11/18 1200 AC 11/20 PO 0732 Gabapentin 300 MG Q8 11/18 1400 AC 11/20 PO 1337 Heparin Sodium 5,000 UNIT Q8 11/18 0600 11/20 (Porcine) SC 1336 Lactated Ringer's 1,000 ML Q8H 11/20 1445 AC IV Lactated Ringer's 1,000 ML Q5H 11/18 0615 [place] 11/20 IV 1205 Morphine Sulfate 0 .STK-MED ONE 11/19 2232 DC PO Morphine Sulfate 15 MG ONCE ONE 11/19 223 DC 11/19 PO 11/19 223 2249 Morphine Sulfate 15 MG Q6PRN PRN 11/19 1630 AC 11/20 PO 1205 Morphine Sulfate 15 MG Q6PRN PRN 11/19 1430 DC PO Ondansetron HCl 4 MG Q6P PRN 11/18 0300 AC IV Pantoprazole Sodium 40 MG DAILY 11/18 0300 AC 11/20 IV 0731 Patient Medication 1 ED ONE ONE 11/19 1915 DC Teaching ED 11/20 1915 Senna 187 MG AT BEDTIME PRN 11/18 1200 AC PO Assessment/Plan Assessment: Patient is a 27 year old male with PMH of multiple bouts of acute pancreatitis secondary to possible abdominal trauma in the past who presented to ED with cheif complain of abdominal pain. Manifested as pain and with markedly elevated pancreatic enzymes, but without imaging characteristics of pancreatic inflammation. CT scan unremarkable, including no evidence of pancreatitis Ultrasound unremarkable, including no gallstones 11/20: Unable to tolerate apple juice, cranberry juice and honduran ice as patient had significant pain that barely was releived by pain medications. Will avoid the low fat diet recommended by GI for now and continue full liquid diet with IV Ringers at a decreased rate of 125/hr. PROBLEM LIST: 1. Abdominal Pain/Pancreatitis 2. 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 Lipase decreased to 2383 and amylase at 648 from 2439. * Continue IV Ringers hydration - decreased to 125/hr given improvement in lipase * Morphine MSIR 15mg q6 PRN * Gabapentin 300mg TID * Full Liquid Diet given patient did not tolerate low fat diet with pain * GI Dr. Lua seen patient; Eventual evaluation at pancreatitis center, to include evaluation of ductal anatomy (the patient lives in [place], [place], and is visiting relatives now). Gastritis -1X episode of clear vomit overnight reported * Continue IV hydration * Zofran/Famotidine DVT PPx: Heparin SC Full Code Diet: Full Liquid Problem List: 1. Pancreatitis Pain Ratin Pain Location: epigastric Pain Goal: Pain 4 or less Pain Plan: as per pain pathway Tomorrow's Labs & Rationales: cbc bep
[2017-11-20 14:49] VITALS: BP 148/87
[2017-11-20 21:35] VITALS: BP 128/86
[2017-11-21 06:00] VITALS: BP 142/98
--- NOTE | 2017-11-21 07:07 | PN- Housestaff ---
Adan Bryant 11/21/17 0707: Subjective Follow-up For: Pancreatitis Subjective: Patient seen and examined. He is not tolerating full liquid diet too well as he has significant pain after eating cream of wheat and toasts that is being managed by IV morphine and oral MSIR. Patient complained of shortness of breath for which an X ray is ordered given possible effusion from fluids and pancreatitis. Otherwise no vomiting, diarrhea, fevers or chills. Review of Systems Constitutional: Denies: see HPI. Objective Last 24 Hrs of Vital Signs/I&O Vital Signs Date Time Temp Pulse Resp B/P B/P Pulse O2 O2 Flow FiO2 Mean Ox Delivery Rate 11/21 0600 98.5 90 20 142/98 97 11/20 2135 99.2 97 16 128/86 94 Room Air 11/20 1449 98.8 96 20 148/87 98 Room Air Intake & Output 11/21 1600 11/21 0800 11/21 0000 Intake Total 1240 150 Output Total 200 Balance 1240 -50 Intake, IV 1000 Intake, Oral 240 150 Output, Urine 200 Physical Exam General Appearance: Alert, Oriented X3, Mild Distress Skin: No Rashes, No Breakdown HEENT: PERRLA, EOMI, Mucous Membr. moist/pink Cardiovascular: Regular Rate, Normal S1, Normal S2 Lungs: Clear to Auscultation, Normal Air Movement Abdomen: Epigastric abdominal pain Tender to palpation superficial/deep; no rebound Extremities: No Clubbing, No Cyanosis, No Edema Vascular: Normal Pulses, Pulses Symmetrical Current Medications: Current Medications Sig/Berto Start time Last Medication Dose Route Stop Time Status Admin Docusate Sodium 100 MG BID PRN 11/18 1200 AC 11/20 PO 0732 Gabapentin 300 MG Q8 11/18 1400 AC 11/21 PO 0607 Heparin Sodium 5,000 UNIT Q8 11/18 0600 AC 11/21 (Porcine) SC 0607 Lactated Ringer's 1,000 ML Q13H 11/21 1030 AC IV Lactated Ringer's 1,000 ML Q8H 11/20 1445 DC 11/21 IV 0607 Lactated Ringer's 1,000 ML Q5H 11/18 0615 DC 11/20 IV 1205 Morphine Sulfate 6 MG Q2-3 HRS NEEDED.. 11/21 0215 AC 11/21 IV 0808 Morphine Sulfate 0 .STK-MED ONE 11/20 2348 DC PO Morphine Sulfate 15 MG Q6PRN PRN 11/19 1630 AC 11/21 PO 0611 Ondansetron HCl 4 MG Q6P PRN 11/18 0300 AC IV Pantoprazole Sodium 40 MG DAILY 11/18 0300 AC 11/21 IV 0808 Senna 187 MG AT BEDTIME PRN 11/18 1200 AC PO Last 24 Hrs of Lab/Keagan Results Last 24 Hrs of Labs/Mics: Laboratory Tests 11/21/17 0935: Amylase 83, Lipase 230 Assessment/Plan Assessment: Patient is a 27 year old male with PMH of multiple bouts of acute pancreatitis secondary to possible abdominal trauma in the past who presented to ED with cheif complain of abdominal pain. Manifested as pain and with markedly elevated pancreatic enzymes, but without imaging characteristics of pancreatic inflammation. 11/21: Amylase is 83 today and Lipase 230. Patient on LR at 125/hr. His symptoms continue to be significant with slow advancement of his diet. He has pain after having a full liquid diet although recommended by GI to have a low fat diet. CXR ordered for patients shortness of breath and given his pancreatitis and fluids he has been getting there may be a chance of effusion, although patient is saturating well. PROBLEM LIST: 1. Abdominal Pain/Pancreatitis 2. Gastritis Abdominal Pain/Pancreatitis Amylase now at 83 and lipase at 230. * Continue IV Ringers hydration - decreased to 125/hr given improvement in lipase * Morphine MSIR 15mg q6 PRN + IV morphine PRN * Gabapentin 300mg TID * Full Liquid Diet given patient did not tolerate low fat diet with pain * GI Dr. Lua seen patient; Eventual evaluation at pancreatitis center, to include evaluation of ductal anatomy (the patient lives in [place], [place], and is visiting relatives now). * Follow up CXR given shortness of breath Gastritis * Continue IV hydration * Zofran/Famotidine DVT PPx: Heparin SC Full Code Diet: Full Liquid Problem List: 1. Pancreatitis Pain Ratin Pain Location: epigastric Pain Goal: Pain 7 or less Pain Plan: as per pain pathway Tomorrow's Labs & Rationales: cbc bep Noe Fitzpatrick MD 11/21/17 9235: Attending Review Statement Attending Statement Attending MD Statement: examined this patient, discuss w/resident/PA/INSURANCE AGENTS SUPERVISOR, agreed w/resident/PA/INSURANCE AGENTS SUPERVISOR, reviewed EMR data (avail), discussed with nursing, discussed with case mgmt, amended to note Attending Assessment/Plan: The patient was seen and discussed with house staff. Still c/o significant pain upon taking liquids. Lipase now returned to normal. Will attempt to taper off of IV narcotics and attempt to eat small meals.
--- NOTE | 2017-11-21 14:31 | RADIOLOGY REPORT ---
EXAMINATION: XR CHEST CLINICAL INFORMATION: Shortness of breath. Assess for pleural effusions. COMPARISON: CT scan of the abdomen and pelvis 11/18/2017. TECHNIQUE: Frontal and views of the chest were obtained. FINDINGS: The lung clark are well expanded and appear clear bilaterally. The cardiac silhouette is normal. On the lateral view there is equivocal blunting of the posterior left costophrenic angle, not confirmed on the frontal projection. The central pulmonary vasculature is normal. The hilar regions appear normal. There are no acute osseous findings. IMPRESSION: 1. There is equivocal blunting of the left posterior costophrenic angle, which is not confirmed on the frontal projection. It may be consistent with a small posterior pleural effusion. Correlate clinically. 2. There are no other acute cardiopulmonary findings.
[2017-11-21 14:32] VITALS: BP 134/88
--- NOTE | 2017-11-21 18:56 | PN- Gastroenterology ---
Assessment/Plan GI Assessment/Recommendations: Recurrent acute pancreatitis, idiopathic. 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 Manifested as pain and with markedly elevated pancreatic enzymes, but without imaging characteristics of pancreatic inflammation. Pancreatic enzymes have normalized quickly. The patient continues to have pain requiring parenteral narcotics. Recommendations * Revert to clear liquid diet. If tolerates, advance slowly, to full liquid diet with polymeric supplements to make up the patient's nutritional requirements. * Consider reimaging pancreas (CT scan with intravenous contrast, pancreatic protocol) given the degree of pain. * Check CRP * Eventual evaluation at pancreatitis center, to include evaluation of ductal anatomy (the patient lives in [place], [place], and is visiting relatives now). Subjective Subjective: Persistent diffuse abdominal pain, worse in the epigastrium. The patient states that this worsens 5 minutes in to eating. No nausea or vomiting. No fever or sweats. Objective Vital Signs and I&Os Vital Signs Date Time Temp Pulse Resp B/P B/P Pulse O2 O2 Flow FiO2 Mean Ox Delivery Rate 11/21 1432 99.2 92 20 134/88 97 Room Air 11/21 0600 98.5 90 20 142/98 97 11/20 2135 99.2 97 16 128/86 94 Room Air Intake & Output 11/21 1600 11/21 0400 11/20 1600 11/20 0400 11/19 1600 11/19 0400 Intake Total 2390 150 3000 940 3600 400 Output Total 200 Balance 2390 -50 3000 940 3600 400 Intake, IV 1650 2400 800 3200 400 Intake, Oral 740 150 600 140 400 0 Number 0 0 1 Bowel Movements Output, Urine 200 Patient 218 lb Weight Physical Exam: Alert and oriented. Appears comfortable. Sclera anicteric. No adenopathy. No skin lesion. Abdomen soft, nondistended, normal bowel sounds; diffuse mild tenderness, with moderate tenderness in the epigastrium. Current Medications: Current Medications Sig/Berto Start time Last Medication Dose Route Stop Time Status Admin Docusate Sodium 100 MG BID PRN 11/18 1200 AC 11/20 PO 0732 Gabapentin 300 MG Q8 11/18 1400 AC 11/21 PO 1428 Heparin Sodium 5,000 UNIT Q8 11/18 0600 AC 11/21 (Porcine) SC 1428 Lactated Ringer's 1,000 ML Q13H 11/21 1030 AC IV Lactated Ringer's 1,000 ML Q8H 11/20 1445 DC 11/21 IV 0607 Morphine Sulfate 6 MG Q12P PRN 11/21 1415 AC IV Morphine Sulfate 6 MG Q2-3 HRS NEEDED.. 11/21 0215 DC 11/21 IV 0808 Morphine Sulfate 0 .STK-MED ONE 11/20 2348 DC PO Morphine Sulfate 15 MG Q6PRN PRN 11/19 1630 AC 11/21 PO 1701 Ondansetron HCl 4 MG Q6P PRN 11/18 0300 AC IV Pantoprazole Sodium 40 MG DAILY 11/18 0300 AC 11/21 IV 0808 Patient Medication 1 ED ONE ONE 11/21 1515 DC 11/21 Teaching ED 11/21 1516 1701 Polyethylene Glycol 17 GM DAILY 11/21 1410 AC 11/21 PO 1701 Senna 187 MG AT BEDTIME PRN 11/18 1200 AC PO Results Pertinent Lab Results: Laboratory Tests 11/21 11/19 0935 0641 Chemistry Amylase (30 - 110 U/L) 83 648 H Lipase (23 - 300 U/L) 230 2383 H
--- NOTE | 2017-11-21 20:22 | Patient Discharge Instructions ---
Discharge Instructions General Discharge Information You were seen/treated for: Pancreatitis Watch for these problems: Abdominal Pain, Nausea, Vomiting, Fevers, Chills Special Instructions: Please follow up with your PCP within 1-2 weeks of discharge. Please follow up with a Gastroenterolgy Pancreatic specialist in your area within 1-2 weeks of discharge. Please return to ED with worsening abdominal pain, nausea, vomiting, fevers, chills. Acute Coronary Syndrome Inclusion Criteria At DC or during hospital stay patient has or had the following: ACS DIAGNOSIS No Discharge Core Measures Meds if any: Prescribed or Continued at Discharge Meds if any: NOT Prescribed or Continued at Discharge Congestive Heart Failure Inclusion Criteria At DC or during hospital stay patient has or had the following: CHF DIAGNOSIS No Discharge Core Measures Meds if any: Prescribed or Continued at Discharge Meds if any: NOT Prescribed or Continued at Discharge Cerebrovascular accident Inclusion Criteria At DC or during hospital stay patient has or had the following: CVA/TIA Diagnosis No Discharge Core Measures Meds if any: Prescribed or Continued at Discharge Meds if any: NOT Prescribed or Continued at Discharge Venous thromboembolism Inclusion Criteria VTE Diagnosis No VTE Type NONE VTE Confirmed by (Test) NONE Discharge Core Measures - Per Current guidelines, there needs to be overlap - treatment for the first 5 days of Warfarin therapy. - If discharged on Warfarin prior to 5 days of - overlap therapy, the patient will need to be - assessed for post discharge needs including - *Post discharge parental anticoagulation - *Warfarin and/or parental anticoagulation education - *Follow up date to check INR post discharge At least 5 days overlap therapy as Inpatient No Meds if any: Prescribed or Continued at Discharge Note: Overlap Therapy is Warfarin and Anticoagulant Meds if any: NOT Prescribed or Continued at Discharge
[2017-11-21 21:00] VITALS: BP 150/100
[2017-11-22 06:35] VITALS: BP 127/84
--- NOTE | 2017-11-22 07:28 | PN- Housestaff ---
See Addendum Subjective Follow-up For: Pancreatitis Subjective: Patient very sleepy this morning and distressed about his illness. He claims he was able to tolerate the clear liquid diet however has significant pain while digesting. States his pain is a 8/10 which is a significant improvement compared to his previous scales. He feels nauseous but no events of vomiting reported. Patient seen by GI yesterday and will follow up with a repeat CT scan today along with a CRP level. Review of Systems Constitutional: Denies: see HPI. Objective Last 24 Hrs of Vital Signs/I&O Vital Signs Date Time Temp Pulse Resp B/P B/P Pulse O2 O2 Flow FiO2 Mean Ox Delivery Rate 11/22 0635 98.1 83 20 127/84 98 Room Air 11/21 2100 99.2 86 18 150/100 98 11/21 1432 99.2 92 20 134/88 97 Room Air Intake & Output 11/22 1600 11/22 0800 11/22 0000 Intake Total 225 Output Total Balance 225 Intake, IV 225 Physical Exam General Appearance: Alert, Oriented X3, Mild Distress Skin: No Rashes, No Breakdown HEENT: EOMI, Mucous Membr. moist/pink Neck: No JVD, No thryomegaly Cardiovascular: Regular Rate, Normal S1, Normal S2 Lungs: Clear to Auscultation, Normal Air Movement Abdomen: Epigastric tenderness; non-distended; no masses appreciated; normal bowel sounds Extremities: No Clubbing, No Cyanosis, No Edema Vascular: Normal Pulses, Pulses Symmetrical Current Medications: Current Medications Sig/Berto Start time Last Medication Dose Route Stop Time Status Admin Docusate Sodium 100 MG BID PRN 11/18 1200 AC 11/20 PO 0732 Gabapentin 300 MG Q8 11/18 1400 AC 11/22 PO 0629 Heparin Sodium 5,000 UNIT Q8 11/18 0600 AC 11/22 (Porcine) SC 0630 Lactated Ringer's 1,000 ML Q13H 11/21 1030 AC 11/21 IV 1900 Lactated Ringer's 1,000 ML Q8H 11/20 1445 DC 11/21 IV 0607 Morphine Sulfate 0 .STK-MED ONE 11/22 0148 DC .ROUTE Morphine Sulfate 6 MG Q12P PRN 11/22 0145 AC 11/22 IV 0157 Morphine Sulfate 0 .STK-MED ONE 11/22 0143 DC PO Morphine Sulfate 6 MG Q12P PRN 11/21 1415 DC IV Morphine Sulfate 6 MG Q2-3 HRS NEEDED.. 11/21 0215 DC 11/21 IV 0808 Morphine Sulfate 15 MG Q6PRN PRN 11/19 1630 AC 11/21 PO 2313 Ondansetron HCl 4 MG Q6P PRN 11/18 0300 AC IV Pantoprazole Sodium 40 MG DAILY 11/18 0300 AC 11/22 IV 0740 Patient Medication 1 ED ONE ONE 11/21 1515 DC 11/21 Teaching ED 11/21 1516 1701 Polyethylene Glycol 17 GM DAILY 11/21 1410 AC 11/21 PO 1701 Senna 187 MG AT BEDTIME PRN 11/18 1200 AC PO Last 24 Hrs of Lab/Keagan Results Last 24 Hrs of Labs/Mics: Laboratory Tests 11/22/17 0736: C-React Prot High Sens Pending 11/21/17 0935: Amylase 83, Lipase 230 Assessment/Plan Assessment: Patient is a 27 year old male with PMH of multiple bouts of acute pancreatitis secondary to possible abdominal trauma in the past who presented to ED with cheif complain of abdominal pain. Manifested as pain and with markedly elevated pancreatic enzymes, but without imaging characteristics of pancreatic inflammation. 11/22: Patient on LR at 75/hr. Continues to have pain on clear liquid diet reverted in recommendation by GI. Amylase and lipase downtrended. GI recommendetion of repeat CT imaging with IV contrast and a CRP level. CXR yesterday negative for any acute effusions. Discontinue IV pain medication morphine. Continue on oral MSIR for now. Pending discharge tomrorow. PROBLEM LIST: 1. Abdominal Pain/Pancreatitis 2. Gastritis Abdominal Pain/Pancreatitis Amylase now at 83 and lipase at 230. CXR negative for any acute pathology given patients shortness of breath yesterday. Continues to have pain on clear liquid diet. * Continue IV Ringers hydration - decreased to 75/hr * Morphine MSIR 15mg q6 PRN + IV morphine PRN q12; will monitor off IV pain medication * Gabapentin 300mg TID * Advanced to full liquid diet now * Follow up repeat CT Imaging IV contrast + CRP (7.3) as per GI recommendations * GI Dr. Lua seen patient; Eventual evaluation at pancreatitis center, to include evaluation of ductal anatomy (the patient lives in [place], [place], and is visiting relatives now). Gastritis * Continue IV hydration @ 75/hr LR * Zofran * Omeprazole 40mg PO daily DVT PPx: Heparin SC Full Code Diet: Full Liquid Problem List: 1. Pancreatitis Pain Ratin Pain Location: epigastric abdominal pain Pain Goal: Pain 4 or less Pain Plan: as per pain pathway Tomorrow's Labs & Rationales: pending
[2017-11-22 14:24] VITALS: BP 124/78
--- NOTE | 2017-11-22 14:47 | Discharge Summary ---
Visit Information Visit Dates Admission Date: 11/18/17 Discharge Date: 11/23/17 Hospital Course Course Attending Physician: Noe Fitzpatrick MD Primary Care Physician: Patient Has No Primary Care Dr Hospital Course: HOSPITAL COURSE: This is a 27-year-old male with past medical history significant for acute pancreatitis, abdominal trauma presented to the hospital with chief complaint of worsening abdominal pain since 11/18/18 Patient has history of episodes of recurrent acute pancreatitis episodes for 11 years. According to the family, when he was 16-year-old he had abdomen trauma while he was playing football,then he was diagnosed with acute pancreatitis in [facility]. Since then he has been having recurrent episodes of acute pancreatitis every 2-3 years depending on his exertional activity. Patient reported a 10 out of 10 abdomen pain, epigastric region, radiating to back, associated with nausea. Denies any vomiting, fever, chills. Denied any constipation or diarrhea. He denied any history of gallstones. No alcohol abuse. Denies hypertriglyceridemia. No family history of pancreatitis or pancreatic cancer. EMERGENCY DEPARTMENT: Vitals afebrile, heart rate 60, respiratory rate 18, blood pressure 153/100, saturating at 95% Labs WBC 9.3, hemoglobin 14, hematocrit 42, platelets 231 Sodium 139, potassium 3.6, BUN 9 and creatinine 0.9, glucose 110 LFTs in normal limits Amylase 2439 Lipase greater than 10,000 EKG sinus arrhythmia, rate 77, no acute ST-T wave changes Patient received sodium chloride 2, Zofran, Pepcid, morphine in the emergency room CAT scan abdomen No acute findings identified in the abdomen/pelvis. GENERAL MEDICINE ADMISSION: Patient admitted to general medicine floor for treatment, evaluation and monitoring of the following: PROBLEM LIST: 1. ACUTE PANCREATITIS 1. Acute pancreatitis Patient presented with worsening abdominal pain, 10 out of 10, associated with the nausea. Patient has history of episodes of recurrent acute pancreatitis episodes for last 11 years.. According to the family, he has been having recurrent episodes of acute pancreatitis every 2-3 years depending on his exertional activity since he was 16-year-old(Diagnosed with acute pancreatitis after abdominal trauma). No alcohol abuse. Denies H/O hypertriglyceridemia. No family history of pancreatitis or pancreatic cancer. Acute pancreatitis most likely secondary to exertional activity prior to that admission. CAT scan abdomen-No acute findings identified in the abdomen/pelvis. Patients pain was controlled on both oral morphine MSIR 15mg q6 PRN as well as IV morphine and gabapentin 300mg q8 PO. Patient was slowly tritrated down on pain medications accordingly. Patient recieved Lactated Ringers during his stay as well as slow advancement of his diet. Gastroenterology Dr. Lua was consulted. suspected the etiology is related to a pancreatic ductal abnormality following trauma many years ago. Manifested as pain and with markedly elevated pancreatic enzymes, but without imaging characteristics of pancreatic inflammation. Pancreatic enzymes have normalized quickly. Patients CRP was checked to be 7.3 and insignificant. Reimaging of the pancreas CT scan with IV contrast, pancreatic protocol) was done given degree of pain. Patient advanced to low fat diet as he tolerated better. IV pain medications discontinued. Patient discharged on oral MSIR for 3 days and Gabapentin 300mg BID for 1 week as well as omeprazole 40mg. Recommended eventual evaluation at pancreatitis center, to include evaluation of ductal anatomy (the patient lives in [place], [place], and is visiting relatives now). Patient advised to follow up with his PCP in [place] accordingly and to return to ED if worsening symptoms of abdominal pain, nausea, vomiting, fevers, chills, diarrhea. Code Status: Full Code Diet: Diet was advanced as tolerated up til low fat diet DVT PPx: heparin SC Allergies: Coded Allergies: hydromorphone (From DILAUDID) (Intermediate, HIVES 11/18/17) Disposition Summary Disposition Principal Diagnosis: Acute Pancreatitis Additional Diagnosis: Pancreatitis Discharge Disposition: home or self care Discharge Instructions General Discharge Information Code Status: Full Code Patient's Diet: Full Liquid diet with transition to low fat diet Patient's Activity: As tolerated Follow-Up Instructions/Appts: Please follow up with PCP in [place] upon discharge. Please follow up with a Pancreatic [facility] specialist accordingly in your area. Return to ED with worsening abdominal pain, nausea, vomting, fevers, chills, diarrhea. Medications at Discharge Discharge Medications: Start taking the following new medications: Morphine Sulfate (Morphine Sulfate) 15 MG TABLET 15 Milligram ORAL EVERY 8 HOURS NEEDED as needed for ABDOMINAL PAIN Qty = 9 No Refills Instructions: .. Comments: Last Taken:11/23 Time:1240 Gabapentin (Gabapentin) 300 MG CAPSULE 300 Milligram ORAL EVERY 8 HOURS Qty = 21 No Refills Instructions: . Comments: Last Taken:11/23/17 Time:1503 Omeprazole (Omeprazole) 40 MG CAPSULE. 1 Capsule ORAL DAILY Qty = 30 No Refills Instructions: . Comments: Last Taken:11/23/17 Time:0541 Copies To: Chanell BOSS,Sukhwinder Klein Attending MD Review Statement Documenting Attending: Noe Fitzpatrick MD Other Findings: Agree with above summary of care and plan upon discharge. The patient was given disks with copies of imaging studies. Needs follow-up by PCP in [place] and suggest referral to specialty center in [place] for closer evaluation of pancreatic ducts.
--- NOTE | 2017-11-22 18:25 | CT SCAN REPORT ---
EXAMINATION: CT ABDOMEN WITHOUT AND WITH CONTRAST CLINICAL INFORMATION: Pancreatitis. COMPARISON: CT abdomen/pelvis 11/18/2017 TECHNIQUE: Contiguous axial thin section helical images of the abdomen were performed before and after the administration of oral contrast and 98 mL Optiray 320 intravenous contrast. The data set was reformatted in the coronal and sagittal planes and reviewed on an independent workstation. DLP: 448 mGy-cm FINDINGS: LUNG BASES: Partially visualized trace left pleural effusion with partial left basilar collapse/consolidation, new from the prior exam. LIVER, GALLBLADDER, AND BILIARY TREE: The liver is normal in size, shape, and attenuation. No focal hepatic lesion or biliary ductal dilatation is present. The gallbladder is unremarkable with no evidence of radiopaque gallstones, gallbladder wall thickening, or obvious pericholecystic inflammatory changes. PANCREAS: There is evidence of peripancreatic inflammation/edema, which is new when compared to the prior exam. Ill-defined fluid seen tracking dorsal to the pancreatic body/tail, along the left anterior pararenal space and left paracolic gutter. No drainable fluid collections identified. No definite areas of hypoenhancement are seen involving the pancreatic parenchyma. No focal enhancing lesion identified. The traversing splenic vein and splenic artery appear patent without evidence of thrombosis or aneurysm formation. SPLEEN: Unremarkable. ADRENAL GLANDS: Unremarkable. KIDNEYS AND URETERS: The kidneys are normal in size, shape, and attenuation. There is a subcentimeter hypoattenuating lesion in the mid right kidney, statistically likely a small cyst. No hydronephrosis, hydroureter, or calculi seen. No perinephric stranding. BLADDER: Unremarkable. GASTROINTESTINAL TRACT: There is thickening of the stomach wall with mucosal hyperenhancement, possibly reactive in etiology. No evidence of bowel obstruction within the [id number]. Colonic diverticulosis noted. IMPRESSION: Findings most compatible with acute interstitial pancreatitis. No evidence of drainable fluid collection. Nonspecific gastric wall thickening, possibly reflecting reactive gastritis. Trace left pleural effusion, new from the prior exam.
[2017-11-22 21:22] VITALS: BP 130/89
--- NOTE | 2017-11-22 23:33 | PN- Gastroenterology ---
Assessment/Plan GI Assessment/Recommendations: (*Please refer to Dr. Sushil Lua's inpt GI consult of 11/18/17 & subsequent progress notes, labs, & imaging studies. I assumed the weekly inpt GI sevice on 11/22/17. Records reviewed). Otherwise healthy 27-year-old male, with episodes of recurrent acute pancreatitis (5th episode/11 years), after sustaining trauma as a 16-year-old while playing football, when he sustained an injury to the xiphoid/epigastric region. He was initially hospitalized in the [place]. He usually has flares every 2-3 years, but appears to be asymptomatic in between bouts. He had never had any EUS. There is no FHx of pancreatitis. He denied any history of hypertriglyceridemia. He denied ever having had genetic testing for pancreatitis. He had no prior abdominal surgery. His gallbladder is intact. He denied any cigarettes, EtOH, or illicit drugs. He was admitted to [facility] with his typical abdominal pain in the epigastric region, radiating to the mid-back, with nausea but no vomiting. He denied any jaundice. *His TG were normal (77) on admission, with lipase > 10K, nl LFTs, EtOH < 10, Admission U tox > 4K OP/MS, & > 80 cannabis (uncertain if obtained after getting analgesics in ER). *As of 11/22/17, the patient was hemodynamically stable & afebrile, with O2 sat RA 97%. He was ambulating. His abdominal pain was improving, down to "5 out of 10". He was tolerating broth and toast. He had minimal nausea, but no vomiting. He denied any fevers, chills, or jaundice. He denied any prior abdominal surgery. His IV Lactated Ringers had been D/C earlier today. His IV MS had been converted to MSIR 15 mg po Q8h p.r.n. & RAFAL. The remainder of his GI regimen consisted of Omeprazole 40 mg daily, MiraLAX, Colace, Senna, and Zofran as needed. 11/22/17: lipase had normalized 230, with + CRP 7.3. SUGGEST- Advance to low-fat diet as tolerated. Mobilize patient. Continue oral analgesics & RAFAL. No NSAIDs. Zofran as needed. May continue Omeprazole 40 mg daily, MiraLAX, Colace, & Senna. I advised the patient that when he returns to [facility], to follow-up with a tertiary care center, to consider EUS, to assess the pancreatic duct, post remote trauma. Additionally, although no masslike effect was seen on CT, consideration for IgG4 level (r/o autoimmune pancreatitis), & possible genetic testing for pancreatitis, to include CFTR, SPINK mutation, PRSS-1, etc. Assuming the patient continues to improve, he can be discharged tomorrow. Problem List: 1. Pancreatitis 2. Abdominal pain 3. Nausea Subjective Subjective: *As of 11/22/17, the patient was hemodynamically stable & afebrile, with O2 sat RA 97%. He was ambulating. His abdominal pain was improving, down to "5 out of 10". He was tolerating broth and toast. He had minimal nausea, but no vomiting. He denied any fevers, chills, or jaundice. He denied any prior abdominal surgery. His IV Lactated Ringers had been D/C earlier today. His IV MS had been converted to MSIR 15 mg po Q8h p.r.n. & RAFAL. The remainder of his GI regimen consisted of Omeprazole 40 mg daily, MiraLAX, Colace, Senna, and Zofran as needed. 11/22/17: lipase had normalized 230, with + CRP 7.3. Review of Systems: Full 14 point ROS otherwise noncontributory, and as above. Constitutional: Denies: chills, diaphoresis, fever, malaise, weakness. EENTM: Denies: blurred vision. Cardiovascular: Denies: chest pain, edema, orthopena, palpitations, peripheral edema. Respiratory: Denies: cough, hemoptysis, orthopnea, short of breath, sputum production, stridor. GI: Reports: abdominal pain-> improving, nausea-> improving. Denies: bloating, constipation, diarrhea, melena, bloody stool, changes in stool. Genitourinary: Denies: discharge, dysuria, frequency, hematuria, hesitation. Musculoskeletal: Denies: back pain, gout, joint pain. Skin: Denies: cysts, jaundice, lesions. Neurological/Psychological: Denies: depressed, dementia. Hematologic/Endocrine: Denies: bleeding. Objective Vital Signs and I&Os Vital Signs Date Time Temp Pulse Resp B/P B/P Pulse O2 O2 Flow FiO2 Mean Ox Delivery Rate 11/22 2121 98.4 76 16 130/89 97 Room Air 11/22 1424 98.6 98 18 124/78 98 Room Air 11/22 0635 98.1 83 20 127/84 98 Room Air Intake & Output 11/23 0400 11/22 1600 11/22 0400 11/21 1600 11/21 0400 11/20 1600 Intake Total 2280 558 1385 150 3000 Output Total 200 Balance 8199 633 3165 -50 3000 Intake, IV 7979 525 9562 2400 Intake, Oral 480 740 150 600 Number 0 0 0 Bowel Movements Output, Urine 200 Patient 218 lb Weight Physical Exam: Well-developed, well-nourished male, non-toxic appearing, in no apparent distress. Sclera anicteric. Conjunctiva pink. Oropharynx clear. No oral thrush. No aphthous ulcers. There is no adenopathy, thyromegaly, or JVD. No peripheral stigmata of inflammatory bowel disease or chronic liver disease on exam. No spiderso on the anterior chest wall. No gynecomastia. No CVA tenderness. Lungs : clear to A&P, with slight decreased BS at the left bases. Heart exam: regular rate rhythm, S1 and S2, without any murmur. Abdominal exam: normal bowel sounds , soft belly, mild epigastric tenderness, without guarding or rebound. No mass. No organomegaly. Negative Henning sign. No fluid shift. No pulsatile mass. No epigastric bruit. Digital rectal exam: deferred. Extremities: without C, C, or E. No palpable cords. No rash. No acute arthropathy. No palmar erythema. No Dupuytren's contractures. Distal pulses 2+ bilaterally. DTRs 2+ bilaterally. Alert and oriented x 3. No tremor. No asterixis. Current Medications: Current Medications Sig/Berto Start time Last Medication Dose Route Stop Time Status Admin Docusate Sodium 100 MG BID PRN 11/18 1200 AC 11/20 PO 0732 Gabapentin 300 MG Q8 11/18 1400 AC 11/22 PO 2201 Heparin Sodium 5,000 UNIT Q8 11/18 0600 AC 11/22 (Porcine) SC 1349 Lactated Ringer's 1,000 ML Q13H 11/21 1030 DC 11/22 IV 0843 Morphine Sulfate 15 MG Q8P PRN 11/22 1445 AC 11/22 PO 1946 Morphine Sulfate 0 .STK-MED ONE 11/22 0148 DC .ROUTE Morphine Sulfate 6 MG Q12P PRN 11/22 0145 DC 11/22 IV 0157 Morphine Sulfate 0 .STK-MED ONE 11/22 0143 DC PO Morphine Sulfate 6 MG Q12P PRN 11/21 1415 DC IV Morphine Sulfate 15 MG Q6PRN PRN 11/19 1630 DC 11/22 PO 1106 Omeprazole 40 MG DAILY AC 11/23 0700 AC PO Ondansetron HCl 4 MG Q6P PRN 11/18 0300 AC IV Pantoprazole Sodium 40 MG DAILY 11/18 0300 DC 11/22 IV 0740 Polyethylene Glycol 17 GM 1700 11/22 1700 AC 11/22 PO 1727 Polyethylene Glycol 17 GM DAILY 11/21 1410 DC 11/21 PO 1701 Senna 187 MG AT BEDTIME PRN 11/18 1200 AC PO Results Pertinent Lab Results: Laboratory Tests 11/22 11/21 0736 0935 Chemistry C-Reactive Prot, Quant (<1.0 mg/dL) 7.3 H C-React Prot High Sens (1.0 - 3.0 mg/L) > 15.0 H Amylase (30 - 110 U/L) 83 Lipase (23 - 300 U/L) 230 Imaging/Other Studies: 11/18/17: EKG- NSR @ 71, nl axis, borderline 1st degree block, NSST inf. 11/18/17: US-LIMITED RUQ ABDOMEN- Unremarkable right upper quadrant ultrasound. Majority of the pancreas is obscured by bowel gas and not well assessed. Nl liver, nl GB, ? slightly enlarged CBD 6 mm (for pt's age). 11/18/17: CT ABD & PELVIS W IV CONTRAST- No acute findings identified in the abdomen/pelvis. 11/21/17: XRY-CHEST XRAY, TWO VIEWS 1. There is equivocal blunting of the left posterior costophrenic angle, which is not confirmed on the frontal projection. It may be consistent with a small posterior pleural effusion. Correlate clinically. 2. There are no other acute cardiopulmonary findings. 11/22/17: CT ABDOMEN WITHOUT AND WITH IV/PO CONTRAST- Findings most compatible with acute interstitial pancreatitis. No evidence of drainable fluid collection. Nonspecific gastric wall thickening, possibly reflecting reactive gastritis. Trace left pleural effusion, new from the prior exam.
[2017-11-23 07:32] VITALS: BP 128/83
--- NOTE | 2017-11-23 08:33 | PN- Housestaff ---
See Addendum Subjective Follow-up For: Pancreatitis Subjective: Patient seen and examined at bedside this morning. Continues to have abdominal pain that has improved. He is tolerating full liquid and transitioned to low fat diet today. He has been seen by GI yesterday who is okay with discharge pending improvement. Patient no longer on LR IV fluids. CT abdomen insignficiant for any acute pathology. Patient advised to follow up back in [place] on his condition appropriately. Review of Systems Constitutional: Denies: see HPI. Objective Last 24 Hrs of Vital Signs/I&O Vital Signs Date Time Temp Pulse Resp B/P B/P Pulse O2 O2 Flow FiO2 Mean Ox Delivery Rate 11/24 731 98.6 87 17 128/83 97 11/22 2122 98.4 76 16 130/89 97 Room Air 11/22 1424 98.6 98 18 124/78 98 Room Air Intake & Output 11/23 1600 11/23 0800 11/23 0000 Intake Total 120 240 Output Total Balance 120 240 Intake, Oral 120 240 Physical Exam General Appearance: Alert, Oriented X3, Mild Distress Skin: No Rashes, No Breakdown HEENT: PERRLA, EOMI, Mucous Membr. moist/pink Cardiovascular: Regular Rate, Normal S1, Normal S2 Lungs: Clear to Auscultation, Normal Air Movement Abdomen: epigastric abdominal pain; normal bowel sounds; no masses Extremities: No Clubbing, No Cyanosis, No Edema Vascular: Normal Pulses, Pulses Symmetrical Current Medications: Current Medications Sig/Berto Start time Last Medication Dose Route Stop Time Status Admin Docusate Sodium 100 MG BID PRN 11/18 1200 AC 11/20 PO 0732 Gabapentin 300 MG Q8 11/18 1400 AC 11/23 PO 0541 Heparin Sodium 5,000 UNIT Q8 11/18 0600 AC 11/23 (Porcine) SC 0541 Lactated Ringer's 1,000 ML Q13H 11/21 1030 DC 11/22 IV 0843 Morphine Sulfate 15 MG Q8P PRN 11/22 1445 AC 11/23 PO 0541 Morphine Sulfate 15 MG Q6PRN PRN 11/19 1630 DC 11/22 PO 1106 Omeprazole 40 MG DAILY AC 11/23 0700 AC 11/23 PO 0541 Ondansetron HCl 4 MG Q6P PRN 11/18 0300 AC IV Pantoprazole Sodium 40 MG DAILY 11/18 0300 DC 11/22 IV 0740 Polyethylene Glycol 17 GM 1700 11/22 1700 AC 11/22 PO 1727 Senna 187 MG AT BEDTIME PRN 11/18 1200 AC PO Assessment/Plan Assessment: Patient is a 27 year old male with PMH of multiple bouts of acute pancreatitis secondary to possible abdominal trauma in the past who presented to ED with cheif complain of abdominal pain. Manifested as pain and with markedly elevated pancreatic enzymes, but without imaging characteristics of pancreatic inflammation. 11/23: Patient okay for discharge today. Will get copies of his imaging for future records. Discharge on oral pain medications appropriately and omeprazole. PROBLEM LIST: 1. Abdominal Pain/Pancreatitis 2. Gastritis Abdominal Pain/Pancreatitis Transitioning to low fat diet. Patients CT abdomen showed interstitial pancreatitis but no acute pathology. Patient seen by GI yesterday as well. * Morphine MSIR 15mg q8PRN pain; will discharge on few days of pain medication and advised to follow up in his outpatient * Gabapentin 300mg TID; will discharge on a few days of Gabapentin and advised to follow up with PCP for further medications * GI Dr. Lua seen patient; Eventual evaluation at pancreatitis center, to include evaluation of ductal anatomy (the patient lives in [place], [place], and is visiting relatives now). * [facility]IT Concepcion has seen patient advised the patient that when he returns to [facility], to follow-up with a tertiary care center, to consider EUS, to assess the pancreatic duct, post remote trauma. Additionally, although no masslike effect was seen on CT, consideration for IgG4 level (r/o autoimmune pancreatitis), & possible genetic testing for pancreatitis, to include CFTR, SPINK mutation, PRSS-1, etc. Gastritis * Zofran * Omeprazole 40mg PO daily - will discharge patient on omperazole accordingly DVT PPx: Heparin SC Full Code Diet: Full Liquid Problem List: 1. Pancreatitis 2. Abdominal pain 3. Nausea Pain Ratin Pain Location: epigastric pain Pain Goal: Pain 4 or less Pain Plan: as per pain pathway Tomorrow's Labs & Rationales: discharge
[2017-11-23] MEDS ORDERED: OMEPRAZOLE40 M1 PO ×3 (10:14→20:18)
[2017-11-23] MEDS ORDERED: GABAPENTIN300 M2 PO ×4 (10:21→20:18)
[2017-11-23] MEDS ORDERED: MORPHINE SULFAT15 M4 PO ×3 (10:21→12:54)
[2017-11-23 14:24] VITALS: BP 134/79
== END 2017-11-23 20:30 | DRG 282 ==
LOC: ERH 23:21 → 2NB 11-18 02:32 → ERHI 11-18 02:32 → ENRESERV 11-18 03:13 → 2NB 11-18 04:01
PROVIDERS: Physician Assistant
DX: K85.90 Acute pancreatitis without necrosis or infection, unspecified (principal); K29.70 Gastritis, unspecified, without bleeding; Z88.5 Allergy status to narcotic agent
CPT/HCPCS: 2NBP; 36415; 36592; 71046; 74177; 80307; 93005; 93010; 96374; 96375; 96376; G0480; J1644; J2405; J7120